=== PATIENT | male | born 1940 | race Caucasian/White ===

== ENCOUNTER 2017-07-23 16:36 | Inpatient (IN) | payer MEDICARE, MEDICAID ==
[~2017-07-23] VITALS: Ht 406.4 cm; Wt 100.0 kg
[~2017-07-23 16:36] MED LIST: ASPI-1264 PO; CLON-527 PO; DIPH25CA83 PO; ESCI10TA PO; HYDR-3972 PO; LEVO100T9 PO; LISI1TAB9 PO; SIMV20TA5 PO; TRIA15CR3 TOP
[2017-07-23 17:26] LABS: BASOPHILS % (AUTO) 0.1 % (0-1); EOSINOPHILS # (AUTO) 0.2 X10'3 (0-0.9); EOSINOPHILS % (AUTO) 1.6 % (0-6); HEMATOCRIT 41.9 % (42.0-52.0); LYMPHOCYTES # (AUTO) 0.7 X10'3 (1.1-4.8); MEAN CORPUSCULAR HEMOGLOBIN 29.3 PG (27.0-31.0); MEAN CORPUSCULAR HGB CONC 33.4 % (33.0-36.5); MEAN CORPUSCULAR VOLUME 87.8 FL (78-98); MEAN PLATELET VOLUME 9.2 FL (7.4-10.4); MONOCYTES # (AUTO) 0.8 X10'3 (0-0.9); MONOCYTES % (AUTO) 5.6 % (2-12); NEUTROPHILS # (AUTO) 12.1 X10'3 (1.8-7.7); NEUTROPHILS % (AUTO) 87.7 % (42-75); PLATELET COUNT 246 X10'3 (140-440); RED BLOOD COUNT 4.77 X10'6 (4.70-6.10); RED CELL DISTRIBUTION WIDTH 13.3 % (11.5-14.5); WHITE BLOOD COUNT 13.8 X10'3 (4.5-11.0)
[2017-07-23 17:55] LABS: ALANINE AMINOTRANSFERASE 13 U/L (12-78); ALBUMIN 3.2 G/DL (3.4-5.0); ALBUMIN/GLOBULIN RATIO 0.7 (1.1-1.5); ALKALINE PHOSPHATASE 95 IU/L (46-116); ANION GAP 12 (8-16); ASPARTATE AMINO TRANSFERASE 12 U/L (10-37); BILIRUBIN,TOTAL 0.6 MG/DL (0.1-1.0); BLOOD UREA NITROGEN 22 MG/DL (7-18); BUN/CREATININE RATIO 15.7 (5.4-32.0); CALCIUM 9.2 MG/DL (8.5-10.1); CHLORIDE 103 MMOL/L (99-107); GLUCOSE 96 MG/DL (70-104); POTASSIUM 4.2 MMOL/L (3.5-5.1); SODIUM 139 MMOL/L (135-145); TOTAL CARBON DIOXIDE 23.7 MMOL/L (24-32); TOTAL PROTEIN 7.6 G/DL (6.4-8.2); eGFR 49 ML/MIN
[2017-07-23 17:56] LABS: PARTIAL THROMBOPLASTIN TIME 29 SECONDS (22-32); PROTHROMBIN TIME 10.3 SECONDS (9.0-12.0)
[2017-07-23 18:10] LABS: CLARITY,URINE CLEAR (Clear); COLOR,URINE YELLOW (Yellow); GLUCOSE, URINE NEGATIVE (Neg); KETONES,URINE 15 mg/dl (Neg); LEUKOCYTE ESTERASE ,URINE TRACE (Neg); NITRITES, URINE NEGATIVE (Neg); OCCULT BLOOD,URINE NEGATIVE (Neg); PROTEIN,URINE TRACE mg/dl (Neg)
[2017-07-23 18:14] LABS: UA COLLECTION TYPE CLN CATCH MIDSTREAM
[2017-07-23 18:15] LABS: BACTERIA,URINE FEW /HPF (Neg); MUCUS STRANDS FEW /LPF (Neg); RBC,URINE 0-2 /HPF (0-2); SQUAMOUS EPITHELIAL CELL,UR FEW /LPF (FEW); WBC,URINE 0-4 /HPF (0-4)
[2017-07-23 18:33] LABS: C-REACTIVE PROTEIN 22.13 MG/DL (0.0-0.5)
[2017-07-23] MEDS ORDERED: HYDROcodone/acetaminophen 10/325mg tab PO ONE (18:40)
[2017-07-23] MEDS ORDERED: morphine 5 MG/ML injection IV ONE (19:15)
[2017-07-23] MEDS ORDERED: methylPREDNISolone sod succ 125mg/2ml vial IV ONE (19:45)
[2017-07-23] MEDS ORDERED: cefazolin 1gm/NS 100mL 100 ML IV ONE (19:45)
[2017-07-23] MEDS ORDERED: CAT1P SUBD (20:10)
[2017-07-23] MEDS ORDERED: CLOP75TA35 PO (20:10)
[2017-07-23] MEDS ORDERED: BIMA2.5D OP (20:10)
[2017-07-23] MEDS ORDERED: ZOLP10TA PO (20:10)
[2017-07-23] MEDS ORDERED: AMLO2.5T2 PO (20:10)
[2017-07-23] MEDS ORDERED: INDO50CA PO (20:10)
[2017-07-23] MEDS ORDERED: magnesium 4gm in 100ml NS 100 ML IV PRN (20:40)
[2017-07-23] MEDS ORDERED: mag hydrox/Alum hydrox/simeth 30ml oral suspension PO PRN (20:40)
[2017-07-23] MEDS ORDERED: magnesium hydroxide 30ml (MOM) UD suspension PO PRN (20:40)
[2017-07-23] MEDS ORDERED: potassium Cl 20 mEq SR tablet PO PRN ×2 (20:40)
[2017-07-23] MEDS ORDERED: acetaminophen 325mg tablet PO PRN (20:40)
[2017-07-23] MEDS ORDERED: potassium Cl 40MEQ/NS 500ml 500 ML IV PRN ×2 (20:40)
[2017-07-23] MEDS ORDERED: magnesium Cl slow-release 64mg tablet PO PRN (20:40)
[2017-07-23] MEDS ORDERED: HYDROmorphone 1 mg/ml syringe IV PRN ×2 (20:40)
[2017-07-23] MEDS ORDERED: magnesium 2GM in 50ml NS 50 ML IV PRN (20:40)
[2017-07-23] MEDS ORDERED: normal saline 1000ml 1,000 ML IV SCH (20:40)
[2017-07-23] MEDS ORDERED: INDOMETHACIN PO SCH (21:00)
[2017-07-23] MEDS: latanoprost 0.005% 2.5ml ophthalmic drops EACHEYE SCH (21:00)
[2017-07-23] MEDS ORDERED: non-formulary drug (Bimatoprost (Lumigan) 2.5 ML) OP SCH (21:00)
[2017-07-23] MEDS ORDERED: non-formulary drug (Simvastatin* (Zocor*) 1 TAB) PO SCH (21:00)
[2017-07-23] MEDS: atorvastatin 10mg tablet PO SCH (21:16)
[2017-07-23] MEDS: ondansetron/PF 4mg/2ml inj IV PRN (21:17)
[2017-07-23 21:33] LABS: CHOL/HDL RATIO 5.3 (0.00-4.99); CHOLESTEROL 258 MG/DL (0-200); HDL CHOLESTEROL 49 MG/DL (35-60); LDL CHOLESTEROL 186 MG/DL (50-100); TRIGLYCERIDES 101 MG/DL (20-135)
[2017-07-23 23:47] VITALS: BP 158/69
[2017-07-24] MEDS ORDERED: piperacillin/tazo 4.5gm/100ml 100 ML IV ONE (00:48)
[2017-07-24] MEDS: piperacillin/tazo 4.5gm/100ml 100 ML IV SCH ×3 (00:57→15:58)
[2017-07-24] MEDS: temazepam 15mg capsule PO PRN ×2 (02:29→20:45)
[2017-07-24 06:00] VITALS: BP 126/60
[2017-07-24] MEDS ORDERED: HYDROCHLOROTHIAZIDE PO SCH (08:00)
[2017-07-24] MEDS ORDERED: [UNRECOGNIZED DRUG - OTHER] PO SCH (08:00)
[2017-07-24] MEDS ORDERED: LISINOPRIL PO SCH (08:00)
[2017-07-24] MEDS: K and/or MAG REPLACEMENT MC SCH (08:00)
[2017-07-24] MEDS: HYDROchlorothiazide 12.5mg capsule PO SCH (08:12)
[2017-07-24] MEDS: lisinopril 10 MG tablet PO SCH (08:12)
[2017-07-24] MEDS: levoTHYROXINE 100mcg tablet PO SCH (08:12)
[2017-07-24] MEDS: clopidogrel 75mg tablet PO SCH (08:12)
[2017-07-24] MEDS: amLODIPine 5mg tablet PO SCH (08:13)
[2017-07-24] MEDS: indomethacin 25mg capsule PO SCH ×3 (08:14→17:30)
[2017-07-24 09:16] LABS: BASOPHILS % (AUTO) 0.1 % (0-1); EOSINOPHILS # (AUTO) 0.1 X10'3 (0-0.9); EOSINOPHILS % (AUTO) 1.3 % (0-6); HEMATOCRIT 37.8 % (42.0-52.0); LYMPHOCYTES # (AUTO) 0.4 X10'3 (1.1-4.8); LYMPHOCYTES % (AUTO) 3.5 % (21-51); MEAN CORPUSCULAR HEMOGLOBIN 29.7 PG (27.0-31.0); MEAN CORPUSCULAR HGB CONC 34.4 % (33.0-36.5); MEAN CORPUSCULAR VOLUME 86.3 FL (78-98); MEAN PLATELET VOLUME 9.3 FL (7.4-10.4); MONOCYTES # (AUTO) 0.1 X10'3 (0-0.9); NEUTROPHILS # (AUTO) 9.9 X10'3 (1.8-7.7); NEUTROPHILS % (AUTO) 94.1 % (42-75); PLATELET COUNT 223 X10'3 (140-440); RED BLOOD COUNT 4.39 X10'6 (4.70-6.10); WHITE BLOOD COUNT 10.6 X10'3 (4.5-11.0)
[2017-07-24 09:29] LABS: ALANINE AMINOTRANSFERASE 12 U/L (12-78); ALBUMIN 2.8 G/DL (3.4-5.0); ALBUMIN/GLOBULIN RATIO 0.6 (1.1-1.5); ALKALINE PHOSPHATASE 87 IU/L (46-116); ANION GAP 9 (8-16); ASPARTATE AMINO TRANSFERASE 13 U/L (10-37); BILIRUBIN,TOTAL 0.4 MG/DL (0.1-1.0); BLOOD UREA NITROGEN 24 MG/DL (7-18); BUN/CREATININE RATIO 18.5 (5.4-32.0); CHLORIDE 101 MMOL/L (99-107); GLUCOSE 207 MG/DL (70-104); MAGNESIUM 1.9 MG/DL (1.5-2.4); POTASSIUM 4.5 MMOL/L (3.5-5.1); SODIUM 136 MMOL/L (135-145); TOTAL CARBON DIOXIDE 25.6 MMOL/L (24-32); TOTAL PROTEIN 7.2 G/DL (6.4-8.2); eGFR 54 ML/MIN
[2017-07-24 10:00] VITALS: BP 136/70
[2017-07-24] MEDS: ondansetron/PF 4mg/2ml inj IV PRN (15:58)
[2017-07-24] MEDS ORDERED: proCHLORperazine 10 MG/2 ml inj IV PRN (16:55)
[2017-07-24] MEDS ORDERED: clonazePAM 1mg tablet PO PRN (17:30)
[2017-07-24] MEDS: lactobacillus rhamnosus 10,000 MMU CELLS/CAPSULE PO SCH (18:03)
[2017-07-24] MEDS ORDERED: pantoprazole 40mg Tablet.DR PO SCH (18:50)
[2017-07-24 19:34] VITALS: BP 134/72
[2017-07-24] MEDS: atorvastatin 10mg tablet PO SCH (20:45)
[2017-07-24] MEDS: latanoprost 0.005% 2.5ml ophthalmic drops EACHEYE SCH (20:46)
[2017-07-24 22:16] VITALS: BP 128/61
[2017-07-25] MEDS: piperacillin/tazo 4.5gm/100ml 100 ML IV SCH ×2 (00:08→08:19)
[2017-07-25 06:00] VITALS: BP 107/58
[2017-07-25 06:19] LABS: BASOPHILS % (AUTO) 0 % (0-1); EOSINOPHILS # (AUTO) 0.2 X10'3 (0-0.9); EOSINOPHILS % (AUTO) 1.5 % (0-6); HEMATOCRIT 34.7 % (42.0-52.0); LYMPHOCYTES # (AUTO) 0.7 X10'3 (1.1-4.8); LYMPHOCYTES % (AUTO) 4.7 % (21-51); MEAN CORPUSCULAR HEMOGLOBIN 29.9 PG (27.0-31.0); MEAN CORPUSCULAR HGB CONC 34.6 % (33.0-36.5); MEAN CORPUSCULAR VOLUME 86.4 FL (78-98); MEAN PLATELET VOLUME 9.4 FL (7.4-10.4); MONOCYTES # (AUTO) 0.8 X10'3 (0-0.9); MONOCYTES % (AUTO) 4.9 % (2-12); NEUTROPHILS # (AUTO) 13.8 X10'3 (1.8-7.7); NEUTROPHILS % (AUTO) 88.9 % (42-75); PLATELET COUNT 211 X10'3 (140-440); RED BLOOD COUNT 4.02 X10'6 (4.70-6.10); RED CELL DISTRIBUTION WIDTH 13.1 % (11.5-14.5); WHITE BLOOD COUNT 15.6 X10'3 (4.5-11.0)
[2017-07-25 07:15] LABS: ALANINE AMINOTRANSFERASE 17 U/L (12-78); ALBUMIN 2.4 G/DL (3.4-5.0); ALBUMIN/GLOBULIN RATIO 0.6 (1.1-1.5); ALKALINE PHOSPHATASE 70 IU/L (46-116); ANION GAP 9 (8-16); ASPARTATE AMINO TRANSFERASE 12 U/L (10-37); BILIRUBIN,TOTAL 0.2 MG/DL (0.1-1.0); BLOOD UREA NITROGEN 34 MG/DL (7-18); BUN/CREATININE RATIO 24.3 (5.4-32.0); CALCIUM 8.5 MG/DL (8.5-10.1); CHLORIDE 102 MMOL/L (99-107); GLUCOSE 151 MG/DL (70-104); MAGNESIUM 2.1 MG/DL (1.5-2.4); POTASSIUM 4.4 MMOL/L (3.5-5.1); SODIUM 135 MMOL/L (135-145); TOTAL CARBON DIOXIDE 24.3 MMOL/L (24-32); TOTAL PROTEIN 6.1 G/DL (6.4-8.2); eGFR 49 ML/MIN
[2017-07-25] MEDS ORDERED: pantoprazole 40 MG vial IV SCH (08:00)
[2017-07-25] MEDS: K and/or MAG REPLACEMENT MC SCH (08:00)
[2017-07-25] MEDS: HYDROchlorothiazide 12.5mg capsule PO SCH (08:19)
[2017-07-25] MEDS: lactobacillus rhamnosus 10,000 MMU CELLS/CAPSULE PO SCH (08:19)
[2017-07-25] MEDS: amLODIPine 5mg tablet PO SCH (08:20)
[2017-07-25] MEDS: levoTHYROXINE 100mcg tablet PO SCH (08:20)
[2017-07-25] MEDS: indomethacin 25mg capsule PO SCH ×2 (08:20→14:07)
[2017-07-25] MEDS: lisinopril 10 MG tablet PO SCH (08:20)
[2017-07-25] MEDS: clopidogrel 75mg tablet PO SCH (08:20)
[2017-07-25 10:00] VITALS: BP 119/67
[2017-07-25] MEDS ORDERED: oxyCODONE/APAP 10/325mg tablet PO PRN (11:40)
[2017-07-25 14:00] VITALS: BP 129/62
[2017-07-25] MEDS ORDERED: INDO25CA PO (14:58)
[2017-07-25] MEDS ORDERED: PANT-47 PO (15:44)
== END 2017-07-25 16:49 | disposition home or self-care (01) | DRG 683 ==
LOC: ER 16:36 → ED HOLD 20:40 → ORTHO 4S 23:32
PROVIDERS: ADMIT Internal Medicine; ATTEND Internal Medicine
DX: N17.9 Acute kidney failure, unspecified (principal); N39.0 Urinary tract infection, site not specified; C61 Malignant neoplasm of prostate; M10.9 Gout, unspecified; E03.9 Hypothyroidism, unspecified; E78.5 Hyperlipidemia, unspecified; F32.9 Major depressive disorder, single episode, unspecified; F41.9 Anxiety disorder, unspecified; I12.9 Hypertensive chronic kidney disease with stage 1 through stage 4 chronic kidney disease, or unspecified chronic kidney disease; K21.9 Gastro-esophageal reflux disease without esophagitis; G47.00 Insomnia, unspecified; R01.1 Cardiac murmur, unspecified; R70.0 Elevated erythrocyte sedimentation rate; N18.9 Chronic kidney disease, unspecified; Z60.2 Problems related to living alone; R09.89 Other specified symptoms and signs involving the circulatory and respiratory systems; Z88.8 Allergy status to other drugs, medicaments and biological substances; Z79.899 Other long term (current) drug therapy; Z79.02 Long term (current) use of antithrombotics/antiplatelets; Z79.82 Long term (current) use of aspirin; Z87.891 Personal history of nicotine dependence; Z80.0 Family history of malignant neoplasm of digestive organs; Z82.49 Family history of ischemic heart disease and other diseases of the circulatory system
CPT/HCPCS: 36415; 71045; 73080; 73100; 73120; 80053; 80061; 81001; 83605; 83735; 84145; 84443; 84550; 85025; 85610; 85651; 85730; 86140; 87040; 87070; 87088; 93306; 93880; 96365; 96375; 99285; C9113; J0690; J0780; J1170; J2405; J2543; J2930; J7030

== ENCOUNTER 2018-11-05 16:11 | Emergency (ER) | payer MEDICARE, MEDICAID ==
[~2018-11-05] VITALS: Ht 172.7 cm; Wt 100.0 kg
[~2018-11-05 16:11] MED LIST changes: +AMLO2.5T2 PO; +BIMA2.5D OP; +CAT1P SUBD; +CLOP75TA35 PO; -DIPH25CA83 PO; -ESCI10TA PO; +INDO25CA18 PO; +INDO50CA14 PO; +PANT-47 PO; -TRIA15CR3 TOP; +ZOLP10TA PO
[2018-11-05 20:14] LABS: BASOPHILS % (AUTO) 0.2 % (0-1); EOSINOPHILS # (AUTO) 0.2 X10'3 (0-0.9); EOSINOPHILS % (AUTO) 2.1 % (0-6); HEMATOCRIT 36.4 % (42.0-52.0); HEMOGLOBIN 12.2 g/dl (14.0-17.9); LYMPHOCYTES # (AUTO) 1.2 X10'3 (1.1-4.8); MEAN CORPUSCULAR HEMOGLOBIN 30.7 PG (27.0-31.0); MEAN CORPUSCULAR HGB CONC 33.5 g/dL (33.0-36.5); MEAN CORPUSCULAR VOLUME 91.4 FL (78-98); MEAN PLATELET VOLUME 8.9 FL (7.4-10.4); MONOCYTES # (AUTO) 0.5 X10'3 (0-0.9); MONOCYTES % (AUTO) 6.2 % (2-12); NEUTROPHILS % (AUTO) 76.5 % (42-75); PLATELET COUNT 161 X10'3 (140-440); RED BLOOD COUNT 3.98 X10'6 (4.70-6.10); RED CELL DISTRIBUTION WIDTH 15.8 % (11.5-14.5); WHITE BLOOD COUNT 7.9 X10'3 (4.5-11.0)
[2018-11-05] MEDS ORDERED: ipratropium/albuterol 3ml nebule NEB ONE (20:15)
[2018-11-05 20:21] LABS: ANION GAP 6 (8-16); BLOOD UREA NITROGEN 27 MG/DL (7-18); BUN/CREATININE RATIO 18.8 (5.4-32.0); CHLORIDE 102 MMOL/L (99-107); CREATININE 1.44 MG/DL (0.60-1.10); GLUCOSE 87 MG/DL (70-104); SODIUM 136 MMOL/L (135-145); TOTAL CARBON DIOXIDE 27.9 MMOL/L (24-32)
[2018-11-05 20:22] LABS: ALANINE AMINOTRANSFERASE 21 U/L (12-78); ALBUMIN 2.4 G/DL (3.4-5.0); ALBUMIN/GLOBULIN RATIO 0.7 (1.1-1.5); ALKALINE PHOSPHATASE 66 IU/L (46-116); ASPARTATE AMINO TRANSFERASE 23 U/L (10-37); BILIRUBIN,TOTAL 0.4 MG/DL (0.1-1.0); CALCIUM 8.8 MG/DL (8.5-10.1); TOTAL PROTEIN 5.9 G/DL (6.4-8.2); eGFR 47 ML/MIN
[2018-11-05 20:25] VITALS: BP 182/83
[2018-11-05] MEDS ORDERED: ALBU8.5H8 IH ×2 (20:46→21:04)
[2018-11-05] MEDS ORDERED: LEVO750T21 PO ×2 (20:46→21:04)
== END 2018-11-05 21:09 | disposition home or self-care (01) ==
LOC: ER 16:14
DX: J18.9 Pneumonia, unspecified organism (principal); I10 Essential (primary) hypertension; M10.9 Gout, unspecified; Z88.8 Allergy status to other drugs, medicaments and biological substances; Z79.899 Other long term (current) drug therapy; Z60.2 Problems related to living alone
CPT/HCPCS: 36415; 71046; 80053; 83605; 85025; 87040; 94640; 94760; 99283; 99284